=== PATIENT | female | born 1985 ===

== ENCOUNTER → 2017-01-17 | Outpatient (REF) | LOC: WSOH 12:49 → WSPT 14:15 | DX: Z02.1 Encounter for pre-employment examination (principal) ==

== ENCOUNTER → 2017-01-20 | Outpatient (REF) | LOC: WSOH 14:01 | DX: Z02.89 Encounter for other administrative examinations (principal) ==

== ENCOUNTER → 2017-01-22 | Outpatient (REF) | LOC: WSOH 09:00 | DX: Z02.89 Encounter for other administrative examinations (principal) ==

== ENCOUNTER → 2017-01-28 | Outpatient (REF) | LOC: WSOH 11:11 | DX: Z02.89 Encounter for other administrative examinations (principal) ==